=== PATIENT | male | born 1945 | race Two or more races ===

== ENCOUNTER 2022-07-19 20:26 | Emergency (ER) | payer OTHER ==
[~2022-07-19] VITALS: Ht 182.9 cm; Wt 210.0 kg
[2022-07-19 20:31] VITALS: BP 126/63
[2022-07-19] MEDS ORDERED: SODIUM CHLORIDE 0.9% 1,000 ML IV ONE (20:45)
[2022-07-19] MEDS ORDERED: NOREPINEPHRINE 8MG/250ML PMX 250 ML IV ONE (20:45)
[2022-07-19] MEDS ORDERED: NOREPINEPHRINE 8 MG in DEXTROSE 5% WATER 250 ML IV PRN (21:00)
[2022-07-19 22:06] LABS: CHLORIDE 96 mEq/L (98-107)
[2022-07-19 22:17] LABS: ETHANOL BLOOD < 10 mg/dL
== END 2022-07-19 21:26 ==
LOC: ER 20:48
DX: I46.9 Cardiac arrest, cause unspecified (principal); J96.00 Acute respiratory failure, unspecified whether with hypoxia or hypercapnia; N17.9 Acute kidney failure, unspecified; I10 Essential (primary) hypertension; J44.9 Chronic obstructive pulmonary disease, unspecified; Z95.810 Presence of automatic (implantable) cardiac defibrillator
CPT/HCPCS: 36415; 71045; 80053; 80320; 83605; 83690; 83880; 84484; 87040; 94002; 99291; J7030; G0480